=== PATIENT | female | born 1950 | race African-American/Black ===

== ENCOUNTER 2018-02-14 14:26 | Inpatient (IN) ==
[2018-02-14] MEDS ORDERED: KETOROLAC 60 MG/2 ML VIAL IM STA (16:02)
[2018-02-14 18:02] LABS: Basophils % 0.4 % (0.0-0.8); Eosinophils # 0.2 10*3/uL (0.0-0.87); Eosinophils % 1.8 % (0.00-10.9); Hematocrit 37.9 VOL% (35.7-47.0); Hemoglobin 11.8 GM/DL (12.0-16.0); Immature Granulocytes % 0.2 %; Immature Granulocytes Absolute 0.02 #; Lymphocytes # 1.7 10*3/uL (1.4-4.0); Lymphocytes % 20.2 % (21.3-54.2); Mean Corpuscular HGB Conc 31.1 GM/DL (32-36); Mean Corpuscular Hemoglobin 30 PG (27-34); Mean Corpuscular Volume 95.5 FL (87-102); Mean Platelet Volume 12.9 FL (9.6-12.0); Monocytes # 0.5 10*3/uL (0.11-0.8); Monocytes % 5.7 % (1.7-12.7); Neutrophils # 5.9 10*3/uL (1.4-7.4); Neutrophils % 71.7 % (38.7-73.9); Platelet Count 178 T/CUMM (130-400); Red Blood Count 3.97 MC/CUMM (3.8-5.5); Red Cell Distribution Width 13.5 % (9.3-17.3); White Blood Count 8.2 T/CUMM (4-12)
[2018-02-14] MEDS ORDERED: ACETAMINOPHEN 325 MG TABLET PO PRN (18:06)
[2018-02-14] MEDS ORDERED: ZALEPLON 5 MG CAPSULE PO PRN (18:06)
[2018-02-14] MEDS ORDERED: DEXTROSE 50% 25 GM/50 ML VIAL IV PRN (18:06)
[2018-02-14] MEDS ORDERED: GLUCAGON 1 MG VIAL IM PRN (18:06)
[2018-02-14 18:12] LABS: PT Patient Result 10.5 SECS; Partial Thromboplastin Time 27.1 SECS (0-40)
[2018-02-14 18:17] LABS: Alanine Aminotransferase 15 U/L (13-56); Albumin 2.9 G/DL (3.4-5.0); Alkaline Phosphatase 88 U/L (45-117); Aspartate Amino Transferase 13 U/L (0-37); Bilirubin,Total < 0.39 MG/DL (0.2-1.0); Blood Urea Nitrogen 17 MG/DL (7-18); Calcium 8.9 MG/DL (8.5-10.1); Glucose 119 MG/DL (74-106); Osmolality,Calculated 279.5 MOS/KG (273-304); Potassium 4.9 MMOL/L (3.5-5.1); Sodium 139 MMOL/L (136-145); Total Protein 7.7 G/DL (6.4-8.3); Troponin I < 0.015 NG/ML (0.00-0.045)
[2018-02-14] MEDS: SODIUM CHLORIDE 0.9% 1,000 ML IV SCH (20:53)
[2018-02-14] MEDS ORDERED: ENOXAPARIN 40 MG/0.4 ML SYRINGE SUBCUT SCH (21:00)
[2018-02-14] MEDS ORDERED: levETIRAcetam 500 MG TABLET PO SCH (21:30)
[2018-02-14] MEDS ORDERED: CITALOPRAM 40 MG TABLET PO SCH (21:30)
[2018-02-14] MEDS ORDERED: ARIPiprazole 5 MG TABLET PO SCH (21:30)
[2018-02-14] MEDS: INSULIN REGULAR 100 UNIT/ML SUBCUT SCH (21:57)
[2018-02-14] MEDS: CARVEDILOL 25 MG TABLET PO SCH (21:57)
[2018-02-15 05:03] LABS: Calcium 8.1 MG/DL (8.5-10.1); Osmolality,Calculated 292.1 MOS/KG (273-304); Potassium 4.9 MMOL/L (3.5-5.1)
[2018-02-15] MEDS ORDERED: LACTATED RINGERS 1,000 ML IV ONE (06:33)
[2018-02-15] MEDS ORDERED: CLINDAMYCIN INJ 900 MG in PREMIX 1 EACH IV ONE (06:35)
[2018-02-15] MEDS: SODIUM CHLORIDE 0.9% 1,000 ML IV SCH ×2 (08:35→18:20)
[2018-02-15] MEDS: INSULIN REGULAR 100 UNIT/ML SUBCUT SCH ×4 (08:51→20:31)
[2018-02-15] MEDS: CARVEDILOL 25 MG TABLET PO SCH ×2 (08:52→20:21)
[2018-02-15] MEDS ORDERED: levETIRAcetam 250 MG TABLET PO SCH (09:00)
[2018-02-15] MEDS ORDERED: BACITRACIN OINT 0.9 GM PACK TOP ONE (14:49)
[2018-02-15] MEDS ORDERED: MORPHINE 4 MG/1 ML VIAL IV PRN ×2 (15:39)
[2018-02-15] MEDS ORDERED: diphenhydrAMINE CAP 25 MG CAPSULE PO PRN (15:39)
[2018-02-15] MEDS ORDERED: ONDANSETRON 4 MG/2 ML VIAL IV PRN (15:39)
[2018-02-15] MEDS ORDERED: SUGAMMADEX 200 MG/2 ML VIAL IV ONE (15:50)
[2018-02-15] MEDS: levETIRAcetam 250 MG TABLET PO SCH ×2 (16:03→20:22)
[2018-02-15] MEDS ORDERED: glipiZIDE 5 MG TABLET PO SCH (16:30)
[2018-02-15] MEDS ORDERED: SEVOFLURANE 1 UNIT/15 MINUTE INH ONE (17:28)
[2018-02-15] MEDS ORDERED: fentaNYL 100 MCG/2 ML VIAL ONE (17:28)
[2018-02-15] MEDS ORDERED: hydrALAZINE 20 MG/1 ML VIAL ONE (17:29)
[2018-02-15] MEDS ORDERED: FUROSEMIDE 20 MG/2 ML VIAL ONE (17:29)
[2018-02-15] MEDS ORDERED: ONDANSETRON 4 MG/2 ML VIAL ONE (17:29)
[2018-02-15] MEDS ORDERED: MIDAZOLAM 2 MG/2 ML VIAL ONE (17:29)
[2018-02-15] MEDS ORDERED: ETOMIDATE 40 MG/20 ML VIAL IV ONE (17:29)
[2018-02-15] MEDS ORDERED: ROCURONIUM 100 MG/10 ML VIAL IV ONE (17:30)
[2018-02-15] MEDS ORDERED: SUCCINYLCHOLINE 200 MG/10 ML VIAL ONE (17:30)
[2018-02-15] MEDS: CLINDAMYCIN INJ 900 MG in PREMIX 1 EACH IV SCH (19:17)
[2018-02-15] MEDS: CITALOPRAM 40 MG TABLET PO SCH (20:21)
[2018-02-15] MEDS: ARIPiprazole 5 MG TABLET PO SCH (20:21)
[2018-02-15] MEDS: LOVASTATIN 20 MG TABLET PO SCH (20:22)
[2018-02-15] MEDS: DOCUSATE SODIUM 100 MG CAPSULE PO SCH (20:22)
[2018-02-16] MEDS: CLINDAMYCIN INJ 900 MG in PREMIX 1 EACH IV SCH (03:10)
[2018-02-16 05:00] LABS: Basophils % 0.1 % (0.0-0.8); Eosinophils # 0.1 10*3/uL (0.0-0.87); Eosinophils % 0.8 % (0.00-10.9); Hematocrit 31.6 VOL% (35.7-47.0); Hemoglobin 9.3 GM/DL (12.0-16.0); Immature Granulocytes % 0.4 %; Immature Granulocytes Absolute 0.03 #; Lymphocytes # 1.8 10*3/uL (1.4-4.0); Lymphocytes % 22.3 % (21.3-54.2); Mean Corpuscular HGB Conc 29.4 GM/DL (32-36); Mean Corpuscular Hemoglobin 29 PG (27-34); Mean Platelet Volume 13.3 FL (9.6-12.0); Monocytes # 0.8 10*3/uL (0.11-0.8); Monocytes % 10.2 % (1.7-12.7); Neutrophils # 5.5 10*3/uL (1.4-7.4); Neutrophils % 66.2 % (38.7-73.9); Platelet Count 156 T/CUMM (130-400); Red Blood Count 3.16 MC/CUMM (3.8-5.5); Red Cell Distribution Width 13.9 % (9.3-17.3); White Blood Count 8.3 T/CUMM (4-12)
[2018-02-16] MEDS: SODIUM CHLORIDE 0.9% 1,000 ML IV SCH ×2 (05:14→21:12)
[2018-02-16 05:18] LABS: Calcium 7.9 MG/DL (8.5-10.1)
[2018-02-16] MEDS: INSULIN REGULAR 100 UNIT/ML SUBCUT SCH ×6 (10:46→20:49)
[2018-02-16] MEDS: CARVEDILOL 25 MG TABLET PO SCH ×2 (10:51→20:49)
[2018-02-16] MEDS: DOCUSATE SODIUM 100 MG CAPSULE PO SCH ×2 (10:51→20:49)
[2018-02-16] MEDS: levETIRAcetam 250 MG TABLET PO SCH ×2 (10:51→20:49)
[2018-02-16] MEDS: FONDAPARINUX 2.5 MG/0.5 ML SYRINGE SUBCUT SCH (10:53)
[2018-02-16] MEDS ORDERED: INSULIN GLARGINE 100 UNIT/ML SUBCUT SCH ×2 (14:00→15:07)
[2018-02-16] MEDS ORDERED: FUROSEMIDE 80 MG TABLET PO SCH (14:00)
[2018-02-16] MEDS ORDERED: LISINOPRIL/HCTZ 20-12.5 MG TABLET PO SCH (14:00)
[2018-02-16] MEDS ORDERED: POTASSIUM CHLORIDE 20 MEQ TABLET PO SCH (14:00)
[2018-02-16] MEDS ORDERED: SODIUM POLYSTYRENE SULFATE 15 GM/60 ML BOTTLE PO STA (16:41)
[2018-02-16] MEDS: ASPIRIN EC 81 MG TABLET PO SCH (19:03)
[2018-02-16] MEDS: ARIPiprazole 5 MG TABLET PO SCH (20:48)
[2018-02-16] MEDS: CITALOPRAM 40 MG TABLET PO SCH (20:48)
[2018-02-16] MEDS: LOVASTATIN 20 MG TABLET PO SCH (20:49)
[2018-02-17] MEDS: SODIUM CHLORIDE 0.9% 1,000 ML IV SCH (04:00)
[2018-02-17 05:51] LABS: Osmolality,Calculated 288.1 MOS/KG (273-304); Potassium 4.8 MMOL/L (3.5-5.1)
[2018-02-17 06:07] LABS: Basophils % 0.2 % (0.0-0.8); Eosinophils # 0.1 10*3/uL (0.0-0.87); Hematocrit 30.1 VOL% (35.7-47.0); Immature Granulocytes % 0.6 %; Immature Granulocytes Absolute 0.05 #; Lymphocytes # 1.3 10*3/uL (1.4-4.0); Lymphocytes % 15.8 % (21.3-54.2); Mean Corpuscular HGB Conc 29.9 GM/DL (32-36); Mean Corpuscular Hemoglobin 30 PG (27-34); Mean Corpuscular Volume 101.7 FL (87-102); Mean Platelet Volume 13.4 FL (9.6-12.0); Monocytes # 1.1 10*3/uL (0.11-0.8); Monocytes % 13.2 % (1.7-12.7); Neutrophils # 5.6 10*3/uL (1.4-7.4); Neutrophils % 69.2 % (38.7-73.9); Platelet Count 129 T/CUMM (130-400); Red Blood Count 2.96 MC/CUMM (3.8-5.5); Red Cell Distribution Width 13.6 % (9.3-17.3); White Blood Count 8.1 T/CUMM (4-12)
[2018-02-17 06:37] LABS: Hypochromasia 1+; Macrocytosis Slight; Platelet Estimate Adequate
[2018-02-17] MEDS: FONDAPARINUX 2.5 MG/0.5 ML SYRINGE SUBCUT SCH (11:12)
[2018-02-17] MEDS: ASPIRIN EC 81 MG TABLET PO SCH (11:12)
[2018-02-17] MEDS: CARVEDILOL 25 MG TABLET PO SCH ×2 (11:12→21:47)
[2018-02-17] MEDS: levETIRAcetam 250 MG TABLET PO SCH ×2 (11:12→21:48)
[2018-02-17] MEDS: DOCUSATE SODIUM 100 MG CAPSULE PO SCH ×2 (11:12→21:48)
[2018-02-17] MEDS: INSULIN REGULAR 100 UNIT/ML SUBCUT SCH ×8 (13:34→21:48)
[2018-02-17] MEDS ORDERED: oxyCODONE IR 5 MG TABLET PO PRN (17:33)
[2018-02-17] MEDS: CITALOPRAM 40 MG TABLET PO SCH (21:48)
[2018-02-17] MEDS: LOVASTATIN 20 MG TABLET PO SCH (21:49)
[2018-02-18] MEDS: SODIUM CHLORIDE 0.9% 1,000 ML IV SCH (01:07)
[2018-02-18 05:22] LABS: Basophils % 0.2 % (0.0-0.8); Eosinophils # 0.1 10*3/uL (0.0-0.87); Eosinophils % 0.6 % (0.00-10.9); Hematocrit 28.8 VOL% (35.7-47.0); Hemoglobin 8.7 GM/DL (12.0-16.0); Immature Granulocytes % 0.4 %; Immature Granulocytes Absolute 0.04 #; Lymphocytes % 10.1 % (21.3-54.2); Mean Corpuscular HGB Conc 30.2 GM/DL (32-36); Mean Corpuscular Hemoglobin 30 PG (27-34); Mean Corpuscular Volume 100.3 FL (87-102); Monocytes % 9.9 % (1.7-12.7); Neutrophils # 7.8 10*3/uL (1.4-7.4); Neutrophils % 78.8 % (38.7-73.9); Platelet Count 151 T/CUMM (130-400); Red Blood Count 2.87 MC/CUMM (3.8-5.5); Red Cell Distribution Width 13.2 % (9.3-17.3); White Blood Count 9.8 T/CUMM (4-12)
[2018-02-18 05:58] LABS: Calcium 8.5 MG/DL (8.5-10.1); Osmolality,Calculated 284.3 MOS/KG (273-304); Potassium 4.6 MMOL/L (3.5-5.1)
[2018-02-18] MEDS: INSULIN REGULAR 100 UNIT/ML SUBCUT SCH ×8 (08:50→21:54)
[2018-02-18] MEDS: INSULIN GLARGINE 100 UNIT/ML SUBCUT SCH ×2 (08:55→21:51)
[2018-02-18] MEDS: ASPIRIN EC 81 MG TABLET PO SCH (14:20)
[2018-02-18] MEDS: CARVEDILOL 25 MG TABLET PO SCH ×2 (14:20→21:54)
[2018-02-18] MEDS: levETIRAcetam 250 MG TABLET PO SCH ×2 (14:21→21:53)
[2018-02-18] MEDS: FONDAPARINUX 2.5 MG/0.5 ML SYRINGE SUBCUT SCH (14:21)
[2018-02-18] MEDS: DOCUSATE SODIUM 100 MG CAPSULE PO SCH ×2 (14:26→21:53)
[2018-02-18] MEDS: LOVASTATIN 20 MG TABLET PO SCH (21:53)
[2018-02-18] MEDS: CITALOPRAM 40 MG TABLET PO SCH (21:53)
[2018-02-18] MEDS: amLODIPine 5 MG TABLET PO SCH (21:53)
[2018-02-18] MEDS: ARIPiprazole 5 MG TABLET PO SCH (21:53)
[2018-02-19] MEDS: SODIUM CHLORIDE 0.9% 1,000 ML IV SCH ×3 (00:57→23:08)
[2018-02-19 05:30] LABS: Basophils % 0.3 % (0.0-0.8); Eosinophils # 0.2 10*3/uL (0.0-0.87); Eosinophils % 2.3 % (0.00-10.9); Hematocrit 29.5 VOL% (35.7-47.0); Immature Granulocytes % 0.4 %; Immature Granulocytes Absolute 0.04 #; Lymphocytes # 1.3 10*3/uL (1.4-4.0); Lymphocytes % 14.4 % (21.3-54.2); Mean Corpuscular HGB Conc 30.5 GM/DL (32-36); Mean Corpuscular Hemoglobin 30 PG (27-34); Mean Corpuscular Volume 97.7 FL (87-102); Mean Platelet Volume 12.6 FL (9.6-12.0); Monocytes # 1.1 10*3/uL (0.11-0.8); Monocytes % 12.2 % (1.7-12.7); Neutrophils # 6.5 10*3/uL (1.4-7.4); Neutrophils % 70.4 % (38.7-73.9); Platelet Count 173 T/CUMM (130-400); Red Blood Count 3.02 MC/CUMM (3.8-5.5); Red Cell Distribution Width 13.5 % (9.3-17.3); White Blood Count 9.2 T/CUMM (4-12)
[2018-02-19 05:51] LABS: Calcium 8.9 MG/DL (8.5-10.1)
[2018-02-19 05:52] LABS: Free T4 (Free Thyroxine) 1.17 NG/DL (0.76-1.46); Osmolality,Calculated 284.3 MOS/KG (273-304); Potassium 4.6 MMOL/L (3.5-5.1); Risk Ratio 2.91; VLDL CHOLESTEROL 21.8 MG/DL
[2018-02-19] MEDS: amLODIPine 5 MG TABLET PO SCH ×2 (08:33→20:21)
[2018-02-19] MEDS: DOCUSATE SODIUM 100 MG CAPSULE PO SCH ×2 (08:33→20:20)
[2018-02-19] MEDS: ASPIRIN EC 81 MG TABLET PO SCH (08:33)
[2018-02-19] MEDS: CARVEDILOL 25 MG TABLET PO SCH ×2 (08:33→20:19)
[2018-02-19] MEDS: levETIRAcetam 250 MG TABLET PO SCH ×2 (08:33→20:21)
[2018-02-19] MEDS: INSULIN GLARGINE 100 UNIT/ML SUBCUT SCH ×2 (08:33→20:22)
[2018-02-19] MEDS: INSULIN REGULAR 100 UNIT/ML SUBCUT SCH ×8 (08:34→20:21)
[2018-02-19] MEDS: FONDAPARINUX 2.5 MG/0.5 ML SYRINGE SUBCUT SCH (09:02)
[2018-02-19] MEDS ORDERED: ALBUTEROL/IPRATROPIUM 3 ML NEB RESP TX ONE (10:33)
[2018-02-19] MEDS ORDERED: hydrALAZINE 20 MG/1 ML VIAL IV PRN (13:47)
[2018-02-19] MEDS: LEVOFLOXACIN 500 MG TABLET PO SCH (14:42)
[2018-02-19] MEDS: LOVASTATIN 20 MG TABLET PO SCH (20:19)
[2018-02-19] MEDS: CITALOPRAM 40 MG TABLET PO SCH (20:20)
[2018-02-19] MEDS: ARIPiprazole 5 MG TABLET PO SCH (20:20)
[2018-02-20 04:32] LABS: Calcium 8.8 MG/DL (8.5-10.1); Osmolality,Calculated 282.1 MOS/KG (273-304); Potassium 4.2 MMOL/L (3.5-5.1)
[2018-02-20 06:30] LABS: Basophils % 0.3 % (0.0-0.8); Eosinophils # 0.4 10*3/uL (0.0-0.87); Hematocrit 27.6 VOL% (35.7-47.0); Hemoglobin 8.5 GM/DL (12.0-16.0); Immature Granulocytes % 0.5 %; Immature Granulocytes Absolute 0.04 #; Lymphocytes # 1.7 10*3/uL (1.4-4.0); Lymphocytes % 19.2 % (21.3-54.2); Mean Corpuscular HGB Conc 30.8 GM/DL (32-36); Mean Corpuscular Hemoglobin 30 PG (27-34); Mean Corpuscular Volume 97.2 FL (87-102); Mean Platelet Volume 13.6 FL (9.6-12.0); Monocytes # 0.9 10*3/uL (0.11-0.8); Monocytes % 9.9 % (1.7-12.7); Neutrophils # 5.9 10*3/uL (1.4-7.4); Neutrophils % 66.1 % (38.7-73.9); Platelet Count 188 T/CUMM (130-400); Red Blood Count 2.84 MC/CUMM (3.8-5.5); Red Cell Distribution Width 13.5 % (9.3-17.3); White Blood Count 8.9 T/CUMM (4-12)
[2018-02-20] MEDS: INSULIN REGULAR 100 UNIT/ML SUBCUT SCH ×10 (09:04→20:29)
[2018-02-20] MEDS: amLODIPine 5 MG TABLET PO SCH ×2 (09:05→21:18)
[2018-02-20] MEDS: CARVEDILOL 25 MG TABLET PO SCH ×2 (09:05→21:19)
[2018-02-20] MEDS: ASPIRIN EC 81 MG TABLET PO SCH (09:05)
[2018-02-20] MEDS: levETIRAcetam 250 MG TABLET PO SCH ×2 (09:05→21:20)
[2018-02-20] MEDS: DOCUSATE SODIUM 100 MG CAPSULE PO SCH ×2 (09:05→21:18)
[2018-02-20] MEDS: INSULIN GLARGINE 100 UNIT/ML SUBCUT SCH ×2 (09:06→20:30)
[2018-02-20] MEDS: LEVOFLOXACIN 500 MG TABLET PO SCH (09:12)
[2018-02-20] MEDS: FONDAPARINUX 2.5 MG/0.5 ML SYRINGE SUBCUT SCH (09:12)
[2018-02-20] MEDS: MAGNESIUM HYDROXIDE SUSP 30 ML UDCUP PO PRN ×2 (09:13→21:18)
[2018-02-20] MEDS: ARIPiprazole 5 MG TABLET PO SCH (21:19)
[2018-02-20] MEDS: CITALOPRAM 40 MG TABLET PO SCH (21:19)
[2018-02-20] MEDS: LOVASTATIN 20 MG TABLET PO SCH (21:25)
[2018-02-21] MEDS: SODIUM CHLORIDE 0.9% 1,000 ML IV SCH ×2 (01:00→08:56)
[2018-02-21] MEDS: INSULIN REGULAR 100 UNIT/ML SUBCUT SCH ×4 (08:53→12:00)
[2018-02-21] MEDS: FONDAPARINUX 2.5 MG/0.5 ML SYRINGE SUBCUT SCH (08:54)
[2018-02-21] MEDS: MAGNESIUM HYDROXIDE SUSP 30 ML UDCUP PO PRN (08:54)
[2018-02-21] MEDS: CARVEDILOL 25 MG TABLET PO SCH (08:55)
[2018-02-21] MEDS: levETIRAcetam 250 MG TABLET PO SCH (08:55)
[2018-02-21] MEDS: amLODIPine 5 MG TABLET PO SCH (08:55)
[2018-02-21] MEDS: INSULIN GLARGINE 100 UNIT/ML SUBCUT SCH (08:55)
[2018-02-21] MEDS: ASPIRIN EC 81 MG TABLET PO SCH (08:55)
[2018-02-21] MEDS: DOCUSATE SODIUM 100 MG CAPSULE PO SCH (08:55)
[2018-02-21] MEDS: LEVOFLOXACIN 500 MG TABLET PO SCH (08:55)
[2018-02-21] MEDS ORDERED: ALBUTEROL/IPRATROPIUM 3 ML NEB RESP TX PRN (09:11)
[2018-02-21] MEDS ORDERED: SODIUM PHOSPHATE ENEMA 133 ML BOTTLE RECTAL ONE (09:12)
[2018-02-21 16:09] VITALS: BP 132/77
== END 2018-02-21 16:05 | disposition swing bed (61) | DRG 494 ==
LOC: EDBD → EDUNIT# → N.ED 14:26 → N.EDINP 18:06 → SUATTDRO 18:06 → N.3E 19:25
PROVIDERS: ADMIT Internal Medicine Geriatric Medicine; ATTEND Internal Medicine